=== PATIENT | male | born 2000 | race Caucasian/White ===

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

== ENCOUNTER 2020-03-14 13:27 | Emergency (ER) | payer BC, MEDICAID ==
[~2020-03-14] VITALS: Ht 172.7 cm; Wt 113.6 kg
[2020-03-14 13:37] VITALS: TEMP 99
[2020-03-14 15:58] VITALS: BP 134/78; PULSE 78
== END 2020-03-14 16:08 | disposition home or self-care (01) ==
LOC: COL.ER 13:27
DX: S43.004A Unspecified dislocation of right shoulder joint, initial encounter (principal); W51.XXXA Accidental striking against or bumped into by another person, initial encounter; Y92.009 Unspecified place in unspecified non-institutional (private) residence as the place of occurrence of the external cause
CPT/HCPCS: J2250; J3010

== ENCOUNTER 2020-05-07 10:32 | Emergency (ER) | payer BC, MEDICAID ==
[~2020-05-07] VITALS: Ht 172.7 cm; Wt 113.6 kg
[2020-05-07 10:42] VITALS: TEMP 98
[2020-05-07 13:02] VITALS: BP 117/72; PULSE 71
== END 2020-05-07 13:03 | disposition home or self-care (01) ==
LOC: COL.ER 10:32
DX: S43.014A Anterior dislocation of right humerus, initial encounter (principal); S43.034A Inferior dislocation of right humerus, initial encounter; X50.0XXA Overexertion from strenuous movement or load, initial encounter
CPT/HCPCS: J7030

== ENCOUNTER 2020-10-22 14:26 | Emergency (ER) | payer BC, MEDICAID ==
[~2020-10-22] VITALS: Ht 172.7 cm; Wt 109.1 kg
[2020-10-22] MEDS ORDERED: ZOLOFT 100MG100 MG PO (15:00)
[2020-10-22] MEDS ORDERED: INTUNIV2 MG PO (15:01)
[2020-10-22] MEDS ORDERED: DEPAKOTE ER 25250 MG PO (15:01)
[2020-10-22] MEDS ORDERED: VYVANSE70 MG PO (15:02)
[2020-10-22 16:42] VITALS: BP 140/87; PULSE 77; TEMP 97.6
== END 2020-10-22 16:42 | disposition home or self-care (01) ==
LOC: COL.ER 14:26
DX: S43.004A Unspecified dislocation of right shoulder joint, initial encounter (principal); X58.XXXA Exposure to other specified factors, initial encounter; Y93.11 Activity, swimming
CPT/HCPCS: J2704; J3010

== ENCOUNTER → 2020-11-13 | Outpatient (CLI) | payer BC, MEDICAID ==
[~2020-11-13] MED LIST changes: +DEPAKOTE ER 25250 MG PO; +VYVANSE70 MG PO
== END ==
LOC: COL.RAD 07:47
DX: S43.004S Unspecified dislocation of right shoulder joint, sequela (principal); M21.921 Unspecified acquired deformity of right upper arm
CPT/HCPCS: A9585; Q9967

== ENCOUNTER 2021-01-05 11:56 | Outpatient (RCR) | payer BC, MEDICAID | END 2021-04-05 | LOC: MKS.ESL.PT | DX: M25.511 Pain in right shoulder (principal); Z98.890 Other specified postprocedural states ==

== ENCOUNTER 2021-02-26 10:30 | Outpatient (RCR) | payer BC, MEDICAID | END 2021-03-30 | LOC: MKS.ESL.PT | DX: M25.511 Pain in right shoulder (principal) ==